=== PATIENT | female | born 1970 | race Caucasian/White ===

== ENCOUNTER 2021-06-12 20:22 | Inpatient (IN) | payer MEDICAID ==
[~2021-06-12] VITALS: Ht 160 cm; Wt 59.0 kg
[2021-06-12 23:30] VITALS: BP 127/73
[2021-06-12] MEDS ORDERED: ZOLPIDEM TARTRATE 5 MG TABLET PO PRN (23:30)
[2021-06-12] MEDS ORDERED: ACETAMINOPHEN 325 MG TABLET PO PRN (23:30)
[2021-06-12] MEDS ORDERED: MAG HYDROX/AL HYDROX/SIMETH 30 ML UDC PO PRN (23:30)
[2021-06-12] MEDS ORDERED: ONDANSETRON HCL/PF 4 MG/2 ML VIAL IVP PRN (23:30)
[2021-06-12] MEDS ORDERED: Z GUARD REMEDY 4 OZ OINT TP PRN (23:30)
[2021-06-12] MEDS ORDERED: MAGNESIUM HYDROXIDE 30 ML UDC PO PRN (23:30)
--- NOTE | 2021-06-12 23:30 | NUR ---
MS ELECTROCARDIOGRAM TECHNICIAN NOTES: RECEIVED PATIENT DIRECT ADMIT FROM [facility], VIA GURNEY ACCOMPANIED BY FRIEND, ON M/S, PATIENT IS A/O X 4, MAURITANIAN SPEAKING ABLE TO MAKE NEEDS KNOWN, ON ROOM AIR SATURATING WELL, SKIN ASSESSMENT DONE NO SKIN ISSUES OBSERVED, INVENTORY DONE DOCUMENT AND SIGNED, PATIENT IS AMBULATORY STABLE, PLACE AT ROOM COMFORTABLY, INFORMATION GATHER FROM PATIENT VIA PHONE VENTURE CAPITAL ANALYST AND FRIEND, CAME WITH CHIEF COMPLAIN OF ABDOMINAL PAIN AND RECTAL BLEEDING, IV LINE AT LFA #20 WITH ONGOING 0.9NSS @75ML/HR INFUSING WELL, PATIENT IS NPO AND FOR MONITORING FOR BLEEDING, ORIENTED TO PLACE, REMIND TO USE THE CALL LIGHTS WHEN NEED ASSISTANCE, PATIENT KEPT CLEAN AND DRY ALL NEEDS MET WILL CONTINUE TO MONITOR.
[2021-06-13] VITALS: BP 127/73
[2021-06-13] MEDS: IV NS 0.9% 1,000 ML IV PRN ×2 (01:00→18:39)
[2021-06-13] MEDS ORDERED: HYDROMORPHONE 1 MG/1 ML DISP.SYRIN IV PRN (01:00)
[2021-06-13 05:59] LABS: CALCIUM, SERUM 8.4 mg/dL (8.5-10.1); CREATININE 0.7 mg/dL (0.6-1.3); MAGNESIUM 2.2 mg/dL (1.8-2.4); PHOSPHORUS 4.2 mg/dL (2.5-4.9)
[2021-06-13 06:30] LABS: BASOPHILS % (AUTO) 0.6 % (0.0-2.0); EOSINOPHILS % (AUTO) 3.1 % (0.0-6.0); HEMATOCRIT 34 % (33-45); HEMOGLOBIN 11.3 g/dL (11.5-14.8); LYMPHOCYTES # (AUTO) 2.1 K/uL (0.8-4.8); LYMPHOCYTES % (AUTO) 45.7 % (20.0-44.0); MEAN CORPUSCULAR HGB CONC 34 g/dl (31.0-36.0); MEAN CORPUSCULAR VOLUME 84 fL (82-100); MONOCYTES # (AUTO) 0.4 K/uL (0.1-1.30); MONOCYTES % (AUTO) 9.4 % (2.0-12.0); NEUTROPHILS # (AUTO) 1.9 K/uL (1.8-8.9); NEUTROPHILS % (AUTO) 41.2 % (43.0-81.0); PLATELET COUNT (AUTO) 239 K/uL (150-450); RED BLOOD CELL COUNT(AUTO) 4.04 MIL/uL (4.0-5.2); WHITE BLOOD COUNT (AUTO) 4.6 K/uL (4.3-11.0)
[2021-06-13] MEDS ORDERED: IBUP-23 PO (06:45)
--- NOTE | 2021-06-13 07:04 | NUR ---
MS RN CLOSING NOTE PATIENT SLEEP IN BED COMFORTABLY, AROUSABLE TO VERBAL STIMULI, BED IN LOW POSITION, CALL LIGHTS WITHIN REACH, ON ROOM AIR SATURATING WELL, WITH IV LINE AT RFA#20 WITH ONGOING NSS@75 ML/HR INFUSING WELL, PATIENT ON NPO ON MONITORING FOR BLEEDING, KEPT CLEAN AND DRY ALL NEEDS MET ENDORSE TO INCOMING SHIFT
--- NOTE | 2021-06-13 07:28 | NUR ---
ms rn received on bed, awake,alert,oriented x4, citizen of [place] speaking, came in w/ gi bleeding, denies pain at this time, abdomen soft,positive bowel sounds,will monitor patient.
[2021-06-13 08:24] VITALS: BP 119/55
--- NOTE | 2021-06-13 08:30 | NUR ---
ms rn npo at this time, orders placed by dr. barrett, carried out.
[2021-06-13] MEDS ORDERED: PEG 3350/NA SULF,BICARB,CL/KCL 4,000 ML BOTTLE PO ONE (09:00)
[2021-06-13] MEDS: PANTOPRAZOLE 40 MG VIAL IV SCH ×2 (09:17→20:12)
[2021-06-13] MEDS ORDERED: IV NS 0.9% 250 ML IV ONE (09:52)
[2021-06-13] MEDS ORDERED: IOHEXOL-300 100 ML VIAL IV ONE (09:52)
--- NOTE | 2021-06-13 11:00 | NUR ---
ms rn went down for ct abdomen w/ and w/o contrass.
--- NOTE | 2021-06-13 11:00 | NUR ---
ms rn was seen by dr. rhiannon helm/ orders made and carried out.
--- NOTE | 2021-06-13 13:46 | NUR ---
SS Note: Pt. requested to speak with SW regarding applying for [employer]. SW contact the [employer] and left a voicemail. NAT provided pt. with the [employer] number [[phone]] if she does not hear back from them.
--- NOTE | 2021-06-13 15:33 | NUR ---
ms rn on bed, all needs attended.
[2021-06-13 16:14] VITALS: BP 112/67
--- NOTE | 2021-06-13 17:12 | NUR ---
ms rn patient complain of sever head ache tylenol was not effective , dilaudid 1mg iv given.
--- NOTE | 2021-06-13 17:20 | NUR ---
ms rn patient complaining of spinning of head, somewhat lethargic,not feeling good, o2 given at 2 liters, v/s wnl, called dr. jurado, w/ order to give narcan
--- NOTE | 2021-06-13 17:41 | NUR ---
ms perez narcan 0.4mg given iv, stat ekg done w/ result,patient put on telemetry for observation, sinus kang on monitor.
[2021-06-13] MEDS ORDERED: NALOXONE PREFILLED SYRINGE 2 MG/2 ML SYRINGE IV ONE (17:42)
[2021-06-13] MEDS ORDERED: NALOXONE HCL 0.4 MG/ML AMPUL ONE (17:44)
[2021-06-13] MEDS ORDERED: NALOXONE HCL 0.4 MG/ML AMPUL IV PRN (18:00)
[2021-06-13] MEDS: NALOXONE PREFILLED SYRINGE 2 MG/2 ML SYRINGE IV ONE ×2 (18:01→18:44)
--- NOTE | 2021-06-13 19:00 | NUR ---
ms rn patient feels better, vomited once, endorsed to manufacturing supervisor 2nd shift,all needs attended.
--- NOTE | 2021-06-13 19:39 | NUR ---
MS ADDISON OPENING NOTE PATIENT AWAKE IN BED PT REPORTING NAUSEA T THIS ITME. WILL CONTACT FIELD BROOMER DR FOR NAUSEA MEDICATION.. BED IN LOW POSITION, CALL LIGHTS WITHIN REACH, ON ROOM AIR SATURATING WELL, WITH IV LINE AT RFA#20 WITH ONGOING NS@75 ML/HR INFUSING WELL, PATIENT KEPT NPO AT THIS TIME SHE HAD EPISODE OF VOMITING EARLIER TODAY AND IS FEELING NAUSEATED.ON MONITORING FOR BLEEDING, ALL NEEDS MET AT THIS TIME WILL CONTINUE TO MONITOR. Addendum: 06/13/21 at 5 by TUNG LOPEZ RN LEILANI MURILLO GIVEN AN HOUR AGO BUT DOESNT SEEM TO BE HELPING PT WILL ASKS FOR AN ALTERNATIVE.
--- NOTE | 2021-06-13 19:56 | NUR ---
MS RN NOTES SPOKE TO LEGAL CONTRACTS SPECIALIST PREP PERSON [facility] REGARDING PT NAUSEA. RECEIVED NEW ORDER FOR REGLAN 10 MG IV PUSH Q6 WILL CARRY OUT ORDER. WILL CONTINUE TO MONITOR PT.
[2021-06-13 20:00] VITALS: BP 145/77
[2021-06-13] MEDS ORDERED: METOCLOPRAMIDE HCL 10 MG/2 ML VIAL IV PRN (20:00)
[2021-06-13] MEDS ORDERED: TRAMADOL HCL 50 MG TABLET PO PRN (20:30)
--- NOTE | 2021-06-13 21:57 | NUR ---
MS RN NOTES PT HAVING HEADACHE TYLENOL NOT HELPFUL. DAY SHIFT GAVE PT DILAUDID PT HAD AN ADVERSE REACTION NARCAN WAS GIVEN. PT STILL IN PAIN. ASKED BUDGET OFFICER MYRIAM YUSUF TO ADVISE ON PAIN MANAGEMENT PREVIOUS REACTION TO DILAUDID MYRIAM YUSUF WAS MADE AWARE OFF. NEW ORDER FOR TRAMADOL 50 MG Q6 PRN ORDERED. WILL ADMINISTER AN MONITOR PT CLOSELY FOR ANY REACTIONS.
[2021-06-14 06:39] LABS: BASOPHILS % (AUTO) 0.4 % (0.0-2.0); EOSINOPHILS % (AUTO) 0.2 % (0.0-6.0); HEMATOCRIT 36 % (33-45); HEMOGLOBIN 12.2 g/dL (11.5-14.8); LYMPHOCYTES # (AUTO) 1.3 K/uL (0.8-4.8); LYMPHOCYTES % (AUTO) 22.7 % (20.0-44.0); MEAN CORPUSCULAR HGB CONC 34 g/dl (31.0-36.0); MEAN CORPUSCULAR VOLUME 84 fL (82-100); MONOCYTES # (AUTO) 0.5 K/uL (0.1-1.30); NEUTROPHILS % (AUTO) 68.7 % (43.0-81.0); PLATELET COUNT (AUTO) 253 K/uL (150-450); RED BLOOD CELL COUNT(AUTO) 4.32 MIL/uL (4.0-5.2); WHITE BLOOD COUNT (AUTO) 5.8 K/uL (4.3-11.0)
[2021-06-14 07:00] LABS: CALCIUM, SERUM 9.3 mg/dL (8.5-10.1); CREATININE 0.7 mg/dL (0.6-1.3); MAGNESIUM 2.2 mg/dL (1.8-2.4); PHOSPHORUS 4.8 mg/dL (2.5-4.9); POTASSIUM 4.1 mmol/L (3.5-5.1)
--- NOTE | 2021-06-14 07:04 | NUR ---
MS RN NOTES PT STILL HAVING SLIGHT NAUSEA BUT NO VOMITING PT DOES NOT WISH TO TAKE PRN REGLAN AT THIS TIME. PT REPAONST NPO EXCEPT MEDS AT THIS TIME. GOLYTYL WAS NOT GIVEN DURING DAY SHIFT PT WAS HAVING N/V UNABLE TO ADMISTER DURING MASS SPEC WELL DUE TOPT UNABLE TO TOLERATE LIQUIDS.
--- NOTE | 2021-06-14 07:20 | NUR ---
ms rn received on be, awake,alert,oriented x4,not in any form of distress, respirations even and unlabored no sob noted, lungs are clear,abdomen soft,positive bowel sounds, denies pain at this time, no nausea at this time.will monitor patient.
[2021-06-14 08:00] VITALS: BP 112/69
--- NOTE | 2021-06-14 08:30 | NUR ---
ms rn on npo at this tie, for colonoscopy/gd at this am, gi doctor aware that golytely was never started.
[2021-06-14] MEDS: PANTOPRAZOLE 40 MG VIAL IV SCH ×2 (09:00→21:50)
[2021-06-14] MEDS ORDERED: ANESTHESIA TRAY IN PYXIS 1 EA TRAY MC ONE (09:51)
--- NOTE | 2021-06-14 10:00 | NUR ---
ms rn went down for egd at this time.
[2021-06-14] MEDS ORDERED: SCOPOLAMINE PATCH 1 MG/72HR TD SCH (10:30)
--- NOTE | 2021-06-14 12:00 | NUR ---
ms rn came back from [facility],all needs attended.
[2021-06-14 13:21] LABS: ALBUMIN 3.8 g/dL (3.4-5.0); BILIRUBIN,TOTAL 0.4 mg/dL (0.2-1.0); CALCIUM, SERUM 8.7 mg/dL (8.5-10.1); CREATININE 0.8 mg/dL (0.6-1.3); POTASSIUM 3.8 mmol/L (3.5-5.1)
[2021-06-14 16:00] VITALS: BP 107/65
--- NOTE | 2021-06-14 19:00 | NUR ---
ms rn on bed, no distress noted,all needs attended,family at bedside.
--- NOTE | 2021-06-14 19:20 | NUR ---
MS RN OPENING NOTES: RECEIVED PATIENT IN BED, AWAKE, A/O X4. NO S/S OF DISTRESS NOTED. NO COMPLAIN OF PAIN. CALL LIGHT WITHIN REACH. BED IN LOWEST AND LOCKED POSITION. NPO POST MN, PATIENT AWARE.
--- NOTE | 2021-06-14 21:33 | NUR ---
ACCORDING TO NUCLEAR MED TECH- [facility], GASTRIC EMPTYING STUDY CANNNOT BE DONE HERE, INFORMED STUDIO RECEPTIONIST BETTY AND THE PATIENT. NPO POST MN CANCELLED, REGULAR DIET RESUMED. CHARGE NURSE PATTI MADE AWARE.
[2021-06-14 21:45] VITALS: BP 109/51
[2021-06-15 06:29] LABS: CALCIUM, SERUM 9.1 mg/dL (8.5-10.1); CREATININE 0.7 mg/dL (0.6-1.3); MAGNESIUM 2.3 mg/dL (1.8-2.4); PHOSPHORUS 3.8 mg/dL (2.5-4.9); POTASSIUM 3.8 mmol/L (3.5-5.1)
[2021-06-15 06:35] LABS: BASOPHILS % (AUTO) 0.2 % (0.0-2.0); EOSINOPHILS % (AUTO) 0.1 % (0.0-6.0); HEMATOCRIT 36 % (33-45); LYMPHOCYTES # (AUTO) 2.4 K/uL (0.8-4.8); LYMPHOCYTES % (AUTO) 21.1 % (20.0-44.0); MEAN CORPUSCULAR HGB CONC 33 g/dl (31.0-36.0); MEAN CORPUSCULAR VOLUME 84 fL (82-100); MONOCYTES % (AUTO) 8.9 % (2.0-12.0); NEUTROPHILS # (AUTO) 7.8 K/uL (1.8-8.9); NEUTROPHILS % (AUTO) 69.7 % (43.0-81.0); PLATELET COUNT (AUTO) 270 K/uL (150-450); RED BLOOD CELL COUNT(AUTO) 4.29 MIL/uL (4.0-5.2); WHITE BLOOD COUNT (AUTO) 11.2 K/uL (4.3-11.0)
--- NOTE | 2021-06-15 07:25 | NUR ---
MS RN OPENING NOTE RECEIVED PATIENT ASLEEP IN BED, EASY TO AROUSE. PT A/O X4, ABLE TO MAKE NEEDS KNOWN. ON RA, TOLERATING WELL. BREATHING UNLABORED AND WITH NO SIGNS OF RESPIRATORY DISTRESS. IV ACCESS ON LAC #20 INTACT AND PATENT. IV ACCESS IN LW G #18 INTACT WITH ONGOING NS@75 ML/HR INFUSING WELL. SAFETY MEASURE IN PLACE: BED AT LOWEST AND LOCKED POSITION, SIDE RAILS UPX2, CALL LIGHT WITHIN REACH. WILL CONTINUE TO MONITOR PT AND WITH PLAN OF CARE.
[2021-06-15] MEDS: PANTOPRAZOLE 40 MG VIAL IV SCH ×2 (08:37→20:36)
[2021-06-15] MEDS: IV NS 0.9% 1,000 ML IV PRN (18:39)
--- NOTE | 2021-06-15 18:45 | NUR ---
RN NOTES PT REFUSED IV FLUIDS NS AT THIS TIME. PER PT, IT'S TOO MUCH FLUIDS FOR HER AND IT'S MAKING HER EYES PUFFY.
--- NOTE | 2021-06-15 18:51 | NUR ---
MS RN CLOSING NOTE PATIENT AWAKE IN BED. A/O X4, ABLE TO MAKE NEEDS KNOWN. ON RA, TOLERATING WELL. BREATHING UNLABORED AND WITH NO SIGNS OF RESPIRATORY DISTRESS. IV ACCESS ON LAC #20 INTACT AND PATENT. IV ACCESS IN LW G #18 INTACT WITH ONGOING NS@75 ML/HR INFUSING WELL. ALL NEEDS AND CARE PROVIDED TO PT. SAFETY MEASURE IN PLACE: BED AT LOWEST AND LOCKED POSITION, SIDE RAILS UPX2, CALL LIGHT WITHIN REACH. WILL ENDORSE TO IT HELP DESK TECHNICIAN NURSE FOR CONTINUITY OF CARE.
[2021-06-15 20:00] VITALS: BP 141/84
--- NOTE | 2021-06-15 20:03 | NUR ---
MS RN OPENING NOTE RECEIVED PATIENT IN BED A/O X4, ABLE TO MAKE NEEDS KNOWN. ON RA, TOLERATING WELL.NO SIGN SOB/DISTRESS NOTED.BREATHING EVEN UNLABORED. IV ACCESS ON LAC #20 INTACT AND PATENT. IV ACCESS IN LW G #18 INTACT WITH ONGOING NS@75 ML/HR INFUSING WELL. SAFETY MEASURE IN PLACE: BED AT LOWEST AND LOCKED POSITION, SIDE RAILS UPX2, CALL LIGHT WITHIN REACH. WILL CONTINUE TO MONITOR.
[2021-06-16 02:52] VITALS: BP 116/84
[2021-06-16] MEDS: IV NS 0.9% 1,000 ML IV PRN (06:28)
[2021-06-16 06:30] LABS: CALCIUM, SERUM 8.8 mg/dL (8.5-10.1); CREATININE 0.7 mg/dL (0.6-1.3); MAGNESIUM 1.8 mg/dL (1.8-2.4); PHOSPHORUS 4.5 mg/dL (2.5-4.9); POTASSIUM 3.7 mmol/L (3.5-5.1)
[2021-06-16 06:35] LABS: BASOPHILS % (AUTO) 0.5 % (0.0-2.0); EOSINOPHILS % (AUTO) 1.3 % (0.0-6.0); HEMATOCRIT 35 % (33-45); HEMOGLOBIN 11.3 g/dL (11.5-14.8); LYMPHOCYTES % (AUTO) 43.8 % (20.0-44.0); MEAN CORPUSCULAR HGB CONC 33 g/dl (31.0-36.0); MEAN CORPUSCULAR VOLUME 84 fL (82-100); MONOCYTES # (AUTO) 0.5 K/uL (0.1-1.30); NEUTROPHILS # (AUTO) 3.2 K/uL (1.8-8.9); NEUTROPHILS % (AUTO) 46.4 % (43.0-81.0); PLATELET COUNT (AUTO) 245 K/uL (150-450); RED BLOOD CELL COUNT(AUTO) 4.14 MIL/uL (4.0-5.2); WHITE BLOOD COUNT (AUTO) 6.9 K/uL (4.3-11.0)
--- NOTE | 2021-06-16 06:43 | NUR ---
MS RN CLOSING NOTE PATIENT AWAKE IN BED. A/O X4, ABLE TO MAKE NEEDS KNOWN. ON RA, TOLERATING WELL.NO SIGN SOB/DISTRESS NOTED.IV ACCESS ON LAC #20 INTACT AND PATENT. IV ACCESS IN LW G #18 INTACT WITH ONGOING NS@75 ML/HR INFUSING WELL. ALL NEEDS AND CARE PROVIDED TO PT. SAFETY MEASURE IN PLACE: BED AT LOWEST AND LOCKED POSITION, SIDE RAILS UPX2, CALL LIGHT WITHIN REACH. WILL ENDORSE TO NEXT SHIFT
--- NOTE | 2021-06-16 07:15 | NUR ---
RN OPENING NOTES RECEIVED PATIENT IN BED, AWAKE, A/O X4, VERBALLY RESPONSIVE, NO SIGNS OF ACUTE DISTRESS NOTED. NO C/O PAIN OR DISCOMFORT AT THIS TIME. STABLE ON ROOM AIR, NO SOB NOTED. NOTED WITH IV ACCESS ON LEFT AC, INTACT AND PATENT. LEFT WRIST IV ACCESS NOTED WITH INFILTRATION, REMOVED. SAFETY MEASURE MAINTAINED. BED IN LOWEST AND LOCKED POSITION, SR UP X2, CALL LIGHT PLACED WITHIN EASY REACH. WILL CONTINUE TO MONITOR PATIENT.
[2021-06-16 08:00] VITALS: BP 124/70
[2021-06-16] MEDS: PANTOPRAZOLE 40 MG VIAL IV SCH (08:32)
[2021-06-16] MEDS ORDERED: PANT40TA2 PO (10:38)
--- NOTE | 2021-06-16 12:10 | NUR ---
FORMAL SERVICE WAITER NOTE PATIENT DISCHARGED HOME IN STABLE CONDITION. A/O X4, ABLE TO MAKE NEEDS KNOWN. VITAL SIGNS TAKEN, STABLE AND RECORDED. IV ACCESS REMOVED, NO BLEEDING NOTED, PRESSURE DRESSING APPLIED. ARM NAME BAND REMOVED. ALL BELONGINGS ACCOUNTED FOR. FORMS SIGNED BY PATIENT. DISCHARGE INSTRUCTIONS PROVIDED WITH THE HELP OF MECHE PIÑA, WITH VERBALIZATION OF UNDERSTANDING. PATIENT LEFT UNIT @ 1145, AMBULATORY, PICKED UP BY FRIEND MANUELA.
== END 2021-06-16 11:40 | disposition home or self-care (01) | DRG 241 ==
LOC: MED 22:42
PROVIDERS: ADMIT Nurse Practitioner Acute Care; ATTEND Student in an Organized Health Care Education/Training Program
PROC: 0DB68ZX Excision of Stomach, Via Natural or Artificial Opening Endoscopic, Diagnostic (ICD-10-PCS; principal; 2021-06-14)
PROC: 0DJD8ZZ Inspection of Lower Intestinal Tract, Via Natural or Artificial Opening Endoscopic (ICD-10-PCS; 2021-06-14)
DX: K29.71 Gastritis, unspecified, with bleeding (principal); D25.9 Leiomyoma of uterus, unspecified; D64.9 Anemia, unspecified; Z90.49 Acquired absence of other specified parts of digestive tract; K31.84 Gastroparesis
CPT/HCPCS: 36415; 74178; 80048-TC; 80053-TC; 82150-TC; 83735-TC; 84100-TC; 85025-TC; 85027-TC; 85610-TC; 87081-TC; 88305-TC; 88313-TC; 88342; C9113; G0378; J1100; J1170; J2310; J2405; J2704; J2765; J3490; J7030; J7050; Q9967

== ENCOUNTER 2024-04-24 00:48 | Emergency (ER) | payer SELFPAY ==
[~2024-04-24] VITALS: Ht 165.1 cm; Wt 65.8 kg
[~2024-04-24 00:48] MED LIST: IBUP-23 PO; PANT40TA2 PO
[2024-04-24] MEDS ORDERED: METOCLOPRAMIDE HCL 10 MG/2 ML VIAL ONE (01:46)
[2024-04-24] MEDS ORDERED: ACETAMINOPHEN 325 MG TABLET ONE (01:48)
[2024-04-24] MEDS: ACETAMINOPHEN 325 MG TABLET PO ONE (01:53)
[2024-04-24] MEDS: METOCLOPRAMIDE HCL 10 MG/2 ML VIAL IV ONE (01:53)
[2024-04-24 02:00] LABS: BASOPHILS # (AUTO) 0.1 K/uL (0.0-0.2); BASOPHILS % (AUTO) 0.6 % (0.0-2.0); EOSINOPHILS # (AUTO) 0.3 K/uL (0.0-0.7); HEMATOCRIT 39 % (33-45); HEMOGLOBIN 13.5 g/dL (11.5-14.8); LYMPHOCYTES % (AUTO) 22.9 % (20.0-44.0); MEAN CORPUSCULAR HEMOGLOBIN 31 PG (26.0-33.0); MEAN CORPUSCULAR HGB CONC 35 g/dl (31.0-36.0); MEAN CORPUSCULAR VOLUME 90 fL (82-100); MONOCYTES # (AUTO) 0.6 K/uL (0.1-1.30); MONOCYTES % (AUTO) 6.9 % (2.0-12.0); NEUTROPHILS # (AUTO) 5.7 K/uL (1.8-8.9); NEUTROPHILS % (AUTO) 66.6 % (43.0-81.0); PLATELET COUNT (AUTO) 253 K/uL (150-450); RED BLOOD CELL COUNT(AUTO) 4.34 MIL/uL (4.0-5.2); RED CELL DISTRIBUTION WIDTH 13.5 % (11.5-15.0); WHITE BLOOD COUNT (AUTO) 8.6 K/uL (4.3-11.0)
[2024-04-24 02:09] LABS: CALCIUM, SERUM 9.1 mg/dL (8.5-10.1); CARBON DIOXIDE 30 mmol/L (21-32); CHLORIDE 104 mmol/L (98-107); CREATININE 0.8 mg/dL (0.6-1.3); GLUCOSE 112 mg/dL (74-106); SODIUM SERUM 142 mmol/L (136-145); UREA NITROGEN, BLOOD 19 mg/dL (7-18)
[2024-04-24 02:18] LABS: LIPASE 46 U/L (16-77); PREGNANCY TEST SERUM QUAN 1 mIU/mL (0-6)
[2024-04-24 02:19] LABS: ALANINE AMINOTRANSFERASE 34 U/L (12-78); ALKALINE PHOSPHATASE 60 U/L (46-116); ASPARTATE AMINOTRANSFERASE 19 U/L (15-37); BILIRUBIN,DIRECT 0.1 mg/dL (0.0-0.2); BILIRUBIN,TOTAL 0.4 mg/dL (0.2-1.0); TOTAL PROTEIN, SERUM 7.9 g/dL (6.4-8.2)
[2024-04-24 04:48] VITALS: BP 112/76; TEMP 97.8; O2SAT 97
== END 2024-04-24 04:49 | disposition home or self-care (01) ==
LOC: ER 00:51
DX: R51.9 Headache, unspecified (principal); R11.2 Nausea with vomiting, unspecified; R00.1 Bradycardia, unspecified; R03.0 Elevated blood-pressure reading, without diagnosis of hypertension; R07.9 Chest pain, unspecified; R10.2 Pelvic and perineal pain; F17.200 Nicotine dependence, unspecified, uncomplicated; Z79.899 Other long term (current) drug therapy; Z88.5 Allergy status to narcotic agent; Z90.49 Acquired absence of other specified parts of digestive tract
CPT/HCPCS: 99285; 96374; 70450; 71045; 93005; 85025; 80048; 83690; 80076; 36415; 84484 ×2; 84702; J2765

== ENCOUNTER 2024-09-04 14:22 | Emergency (ER) | payer MEDICAID ==
[~2024-09-04] VITALS: Ht 170.2 cm; Wt 62.6 kg
[2024-09-04] MEDS ORDERED: METOCLOPRAMIDE HCL 10 MG/2 ML VIAL ONE (15:11)
[2024-09-04] MEDS: METOCLOPRAMIDE HCL 10 MG/2 ML VIAL IV ONE (15:24)
[2024-09-04 15:26] LABS: PLATELET COUNT (AUTO) 260 K/uL (150-450); RED BLOOD CELL COUNT(AUTO) 4.54 MIL/uL (4.0-5.2); RED CELL DISTRIBUTION WIDTH 13.6 % (11.5-15.0); WHITE BLOOD COUNT (AUTO) 5.7 K/uL (4.3-11.0)
[2024-09-04 15:42] LABS: CALCIUM, SERUM 9.1 mg/dL (8.5-10.1); CREATININE 0.7 mg/dL (0.6-1.3); SODIUM SERUM 137.0 mmol/L (136-145); UREA NITROGEN, BLOOD 11.0 mg/dL (7-18)
[2024-09-04 15:46] LABS: ASPARTATE AMINOTRANSFERASE 20.0 U/L (15-37); TOTAL PROTEIN, SERUM 8.3 g/dL (6.4-8.2)
[2024-09-04 16:29] LABS: APPEARANCE,URINE CLEAR (CLEAR); BLOOD, URINE Moderate Ery/uL (NEGATIVE); LEUKOCYTE ESTERASE ,URINE Negative (NEGATIVE); UGLUCOSE Negative (NEGATIVE)
[2024-09-04 16:30] LABS: NITRITE, URINE NEGATIVE (NEGATIVE)
[2024-09-04 16:34] LABS: ADD URINE CULTURE NO; PREGNANCY TEST URINE QUAL NEGATIVE (NEGATIVE); SQUAMOUS EPITHELIAL CELL,UR Few /HPF (None Seen)
[2024-09-04] MEDS ORDERED: ONDA4TAB5 PO (16:54)
[2024-09-04] MEDS ORDERED: IBUP-1490 PO (16:54)
[2024-09-04 17:20] VITALS: BP 106/73; TEMP 97.9; O2SAT 97
== END 2024-09-04 17:20 | disposition home or self-care (01) ==
LOC: ER 14:26
DX: R10.11 Right upper quadrant pain (principal); R11.0 Nausea; E78.5 Hyperlipidemia, unspecified; F17.200 Nicotine dependence, unspecified, uncomplicated; Z79.899 Other long term (current) drug therapy; Z88.5 Allergy status to narcotic agent; Z90.49 Acquired absence of other specified parts of digestive tract
CPT/HCPCS: 99285; 96374; 76705; 85025; 80048; 83690; 80076; 84703; 81001; 36415; 82962; J2765; 87086-TC

== ENCOUNTER 2024-09-24 21:31 | Emergency (ER) | payer MEDICAID ==
[~2024-09-24] VITALS: Ht 167.6 cm; Wt 70.8 kg
[~2024-09-24 21:31] MED LIST changes: +IBUP-1490 PO; +ONDA4TAB5 PO
[2024-09-24] MEDS: IV NS 0.9% 1,000 ML BAG IV ONE ×2 (21:53→22:22)
[2024-09-24] MEDS ORDERED: ONDANSETRON HCL/PF 4 MG/2 ML VIAL ONE ×2 (21:56→22:20)
[2024-09-24] MEDS: ONDANSETRON HCL/PF 4 MG/2 ML VIAL IV ONE (21:58)
[2024-09-24 22:01] LABS: PLATELET COUNT (AUTO) 270 K/uL (150-450); RED BLOOD CELL COUNT(AUTO) 4.46 MIL/uL (4.0-5.2); RED CELL DISTRIBUTION WIDTH 13.8 % (11.5-15.0); WHITE BLOOD COUNT (AUTO) 9.4 K/uL (4.3-11.0)
[2024-09-24 22:13] LABS: CALCIUM, SERUM 8.8 mg/dL (8.5-10.1); CREATININE 0.6 mg/dL (0.6-1.3); SODIUM SERUM 143 mmol/L (136-145); UREA NITROGEN, BLOOD 14 mg/dL (7-18)
[2024-09-24 22:19] LABS: ASPARTATE AMINOTRANSFERASE 19 U/L (15-37); TOTAL PROTEIN, SERUM 8.1 g/dL (6.4-8.2)
[2024-09-24] MEDS: ONDANSETRON HCL/PF 4 MG/2 ML VIAL IVP ONE (22:23)
[2024-09-24] MEDS ORDERED: IOHEXOL-350 100 ML VIAL IV ONE (22:24)
[2024-09-24] MEDS ORDERED: CT SWABBABLE VALVE TRANS SET 1 EA INFUS.SET MC ONE (22:24)
[2024-09-24] MEDS ORDERED: IV NS 0.9% 250 ML IV ONE (22:24)
[2024-09-24] MEDS ORDERED: POTASSIUM CL. PREMIX PERIPHER. 200 ML ONE (22:25)
[2024-09-24 22:30] LABS: ALCOHOL, BLOOD < 3 mg/dL (0-10); PHOSPHORUS 2.2 mg/dL (2.5-4.9)
[2024-09-24] MEDS: POTASSIUM CL. PREMIX PERIPHER. 50 ML IV SCH (22:31)
[2024-09-24 23:04] LABS: INR 1.01 (0.91-1.10)
[2024-09-25] MEDS ORDERED: POTA-58 PO (00:15)
[2024-09-25] MEDS ORDERED: POTASSIUM CHLORIDE 20 MEQ TAB.PRT.SR PO ONE (00:27)
[2024-09-25] MEDS: POTASSIUM CHLORIDE 20 MEQ TAB.PRT.SR PO ONE (00:28)
[2024-09-25 00:55] VITALS: BP 131/90; TEMP 97.4; O2SAT 100
== END 2024-09-25 00:55 | disposition home or self-care (01) ==
LOC: ER 21:34
DX: R42 Dizziness and giddiness (principal); E87.6 Hypokalemia; E03.9 Hypothyroidism, unspecified; R11.2 Nausea with vomiting, unspecified; R53.1 Weakness; R55 Syncope and collapse; E78.5 Hyperlipidemia, unspecified; F17.200 Nicotine dependence, unspecified, uncomplicated; Z79.899 Other long term (current) drug therapy; Z88.5 Allergy status to narcotic agent; Z90.49 Acquired absence of other specified parts of digestive tract
CPT/HCPCS: 99285; 96374; 96361; 93005; 71045; 96376; 70450; 70498; 70496; 85025; 80048; 80076; 83735; 84100; 36415; 84443; 84484; 85730; 82962; 80320; 80307; J2405 ×2; J7050; J3480; Q9967; G0480

== ENCOUNTER 2025-01-12 19:08 | Emergency (ER) | payer MEDICAID ==
[~2025-01-12] VITALS: Ht 167.6 cm; Wt 70.8 kg
[~2025-01-12 19:08] MED LIST changes: +POTA-58 PO
[2025-01-12] MEDS: IV NS 0.9% 1,000 ML BAG IV ONE (20:40)
[2025-01-12 21:01] LABS: PLATELET COUNT (AUTO) 252 K/uL (150-450); RED BLOOD CELL COUNT(AUTO) 4.41 MIL/uL (4.0-5.2); RED CELL DISTRIBUTION WIDTH 13.6 % (11.5-15.0); WHITE BLOOD COUNT (AUTO) 11.1 K/uL (4.3-11.0)
[2025-01-12 21:13] LABS: CALCIUM, SERUM 8.5 mg/dL (8.5-10.1); CREATININE 0.6 mg/dL (0.6-1.3); SODIUM SERUM 141 mmol/L (136-145); UREA NITROGEN, BLOOD 11 mg/dL (7-18)
[2025-01-12 21:24] LABS: INR 1.04 (0.91-1.10)
[2025-01-12 21:26] LABS: ASPARTATE AMINOTRANSFERASE 14 U/L (15-37); TOTAL PROTEIN, SERUM 7.6 g/dL (6.4-8.2)
[2025-01-13 03:25] VITALS: BP 112/88; TEMP 98.2; O2SAT 98
== END 2025-01-13 03:26 | disposition home or self-care (01) ==
LOC: ER 19:10
DX: S09.90XA Unspecified injury of head, initial encounter (principal); W19.XXXA Unspecified fall, initial encounter; Y93.89 Activity, other specified; Y92.89 Other specified places as the place of occurrence of the external cause; Y99.8 Other external cause status; E78.5 Hyperlipidemia, unspecified; F17.200 Nicotine dependence, unspecified, uncomplicated; Z79.899 Other long term (current) drug therapy; Z88.5 Allergy status to narcotic agent; Z90.49 Acquired absence of other specified parts of digestive tract
CPT/HCPCS: 99285; 96360; 70450; 71045; 93005; 85025; 80048; 80076; 36415; 84484 ×2; 85730; J7030